=== PATIENT | male | born 2005 | race Caucasian/White ===

== ENCOUNTER 2023-04-05 07:00 | Emergency (ER) | payer SELFPAY ==
[2023-04-05] VITALS (7 sets, daily range): BP systolic 94–128; BP diastolic 46–91
[~2023-04-05] VITALS: Ht 167.6 cm; Wt 52.8 kg
[2023-04-05 07:33] LABS: BASO% 0.7 % (0-3); EOS% 2.3 % (0-8); HEMATOCRIT 43.6 % (39.0-50.0); HEMOGLOBIN 14.3 g/dl (14.0-18.0); IMMATURE GRANULOCYTES 0.1 % (0.0-5.0); LYMPH% 38.8 % (15-41); MEAN CELL VOLUME 97.1 fL CALC (80.0-100.0); MEAN CORPUSCULAR HGB 31.8 pG CALC (26.0-32.0); MEAN CORPUSCULAR HGB CONC 32.8 g/dL CAL (32.0-36.0); MONO% 6.7 % (2-13); NEUT# 3.86 thou/uL (1.82-7.42); NEUT% 51.4 % (42-76); RED BLOOD COUNT 4.49 mill/uL (4.70-6.10); RED CELL DISTRI WIDTH 12.1 % (11.5-15.5)
[2023-04-05 07:42] LABS: ALBUMIN 4.7 g/dL (3.2-5.0); ALKALINE PHOSPHATASE 95 u/l (38-126); ANION GAP 15 (6-22 (CALC)); BILIRUBIN, TOTAL 3.2 mg/dL (0.2-1.3); BUN 22 mg/dL (9-20); BUN/CREATININE RATIO 19 (12-20 (CALC)); CARBON DIOXIDE 22 mmol/l (22-30); CHLORIDE 106 mmol/l (95-108); CREATININE 1.1 mg/dL (0.7-1.3); GFR FOR AFR.AMER. > 60 ML/MIN (>=60 (CALC)); GFR OTHER RACES > 60 ML/MIN (>=60 (CALC)); LIPASE 51 u/l (23-300); SGOT/AST 38 u/l (17-59); SODIUM 140 mmol/l (137-146); TOTAL PROTEIN 7.5 g/dL (6.3-8.2)
[2023-04-05 08:08] LABS: URINE BILIRUBIN - DIPSTICK NEGATIVE (NEGATIVE); URINE BLOOD DIPSTICK LARGE (NEGATIVE); URINE COLOR YELLOW; URINE GLUCOSE - DIPSTICK NEGATIVE (NEGATIVE); URINE KETONE NEGATIVE (NEGATIVE); URINE LEUK ESTERASE NEGATIVE (NEGATIVE); URINE PROTEIN - DIPSTICK NEGATIVE (NEG-TRACE); URINE SPECIFIC GRAVITY 1.025; URINE UROBILINOGEN - DIPSTICK 0.2 E.U./dL (0.2)
[2023-04-05 08:11] LABS: URINE NITRITE - DIPSTICK NEGATIVE (Negative)
[2023-04-05 08:15] LABS: URINE RBC 50-100 RBC/hpf (0-5); URINE WBC 0-2 WBC/hpf (0-5)
[2023-04-05] MEDS ORDERED: ZOFRAN4 MG/TAB PO (08:35)
[2023-04-05] MEDS ORDERED: TRAMADOL HYDROC50 M1 PO (08:35)
[2023-04-05] MEDS ORDERED: TORADOL PO (08:35)
[2023-04-05] MEDS ORDERED: TAMSULOSIN0.4 MG PO (08:35)
== END 2023-04-05 09:30 | disposition home or self-care (01) | DRG 694 ==
LOC: ED 07:00
PROVIDERS: Family Medicine
DX: N20.1 Calculus of ureter (principal); F17.290 Nicotine dependence, other tobacco product, uncomplicated